=== PATIENT | female | born 1965 | race Caucasian/White ===

== ENCOUNTER 2018-02-03 13:46 | Emergency (ER) | payer MEDICAID ==
[~2018-02-03] VITALS: Ht 157.5 cm; Wt 144.8 kg
[~2018-02-03 13:46] MED LIST: ASPIR 8181 M1 PO; BENTYL 20 MG TA20 M1 PO; CLEOCIN HCL150 MG PO; DOXYCYCLINE 10100 M1 PO; DOXYCYCLINE 10100 MG PO; HYDROCODON-ACE1 EAC5 PO; HYDROCODON-ACE1 EAC7; HYDROCODON-ACE1 EAC7 PO; HYDROCODONE-AP1 EAC6 PO; HYDROCODONE-APA1 TA1 PO; HYSINGLA ER40 MG PO; INDAPAMIDE2.5 MG PO; IRON325; LEVOTHYROXIN0.025 MG PO; LISINOPRIL2.5 MG PO; LOMOTIL TABLET1 EACH PO; LORTAB 7.5/5001 TA1 PO; NOHOMEMEDICATIONS; NORCO 10-325 T1 EACH PO; NORCO 5-325 TA1 EAC1 PO; NORCO 5-325 TA1 EACH PO; OXYCONTIN; OXYCONTIN PO; PARAFON FORTE500 M2 PO; PERCOCET 5-3251 EACH PO; PHENERGAN 25 MG25 M1 PO; RANITIDINE 150150 M1 PO; RANITIDINE HCL300 M1 PO; TRAMADOL 50 MG50 MG PO; TRIPLE ANTIBIOT30 G2 TP; TYLENOL325 MG PO; ULTRAM 50MG TAB50 MG PO; ULTRAM50 MG PO; VICODIN 5-5001 EACH PO; VITAMIN D1000 UNI1 PO; ZANTAC 150MG T150 M1; ZOFRAN ODT4 MG PO; [UNRECOGNIZED DRUG - OTHER]
[2018-02-03] MEDS ORDERED: SYNTHROID50 MCG PO (14:03)
[2018-02-03] MEDS ORDERED: INDAPAMIDE2.5 MG PO (14:03)
[2018-02-03 14:49] LABS: INFLUENZA A ANTIGEN None Detected (None Detect)
[2018-02-03] MEDS ORDERED: BENTYL 20 MG TA20 M1 PO (15:19)
[2018-02-03] MEDS ORDERED: PHENERGAN 25 MG25 M1 PO (15:19)
[2018-02-03 15:35] VITALS: BP 163/74
== END 2018-02-03 15:35 | disposition home or self-care (01) ==
LOC: M.ERS 13:46
PROVIDERS: Nurse Practitioner Family
DX: J11.1 Influenza due to unidentified influenza virus with other respiratory manifestations (principal); M19.90 Unspecified osteoarthritis, unspecified site; K21.9 Gastro-esophageal reflux disease without esophagitis; E03.9 Hypothyroidism, unspecified; M79.7 Fibromyalgia; G43.909 Migraine, unspecified, not intractable, without status migrainosus; G89.29 Other chronic pain

== ENCOUNTER 2018-03-29 18:07 | Emergency (ER) | payer MEDICAID ==
[~2018-03-29] VITALS: Ht 157.5 cm; Wt 142.9 kg
[~2018-03-29 18:07] MED LIST changes: +SYNTHROID50 MCG PO
[2018-03-29] MEDS ORDERED: LOPRESSOR25 PO (18:34)
[2018-03-29] MEDS ORDERED: TRAMADOL 50 MG50 MG PO (18:35)
[2018-03-29] MEDS ORDERED: HYDROCODONE-AP1 EAC6 PO (18:40)
[2018-03-29 19:48] LABS: CALCIUM 8.8 mg/dL (8.5-10.1); CREATININE 0.6 mg/dL (0.6-1.3); POTASSIUM 4.4 mmol/L (3.5-5.1)
[2018-03-29 19:51] VITALS: BP 209/93
[2018-03-29 19:52] LABS: ALBUMIN 3.6 g/dL (3.4-5.0); TOTAL BILIRUBIN 0.2 mg/dL (<0.1-1.0); TOTAL PROTEIN 7.2 g/dL (6.4-8.2)
--- NOTE | 2018-03-30 10:05 | EKG ---
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 : 1965 Requested By: Lisa Orellana Order Number: [id number] MD: Bradley Duran Measurements Intervals [place] Rate: 69 P: 50 AR: 133 QRS: 6 QRSD: 102 T: 55 QT: 411 QTc: 441 Interpretive Statements Sinus rhythm Probable left atrial enlargement Minimal ST depression, lateral leads Compared to ECG 10/22/2010 10:04:40 no change Electronically Signed On 03-30-2018 10:05:09 CDT by Bradley Duran [email or web address] <ELECTRONICALLY SIGNED> By: Bradley Duran MD, [facility] 03/30/18 1005 183 32 Bradley Duran MD, [facility] /EPI
== END 2018-03-29 19:53 | disposition home or self-care (01) ==
LOC: M.ERS 18:07
PROVIDERS: Nurse Practitioner Family
DX: T44.7X1A Poisoning by beta-adrenoreceptor antagonists, accidental (unintentional), initial encounter (principal); G89.29 Other chronic pain; M54.9 Dorsalgia, unspecified; M25.559 Pain in unspecified hip; M19.90 Unspecified osteoarthritis, unspecified site; M79.7 Fibromyalgia; G43.909 Migraine, unspecified, not intractable, without status migrainosus; K21.9 Gastro-esophageal reflux disease without esophagitis; E03.9 Hypothyroidism, unspecified; R53.82 Chronic fatigue, unspecified; Z88.5 Allergy status to narcotic agent; Z88.0 Allergy status to penicillin; Z88.1 Allergy status to other antibiotic agents; Z88.4 Allergy status to anesthetic agent; Z88.2 Allergy status to sulfonamides; Z88.8 Allergy status to other drugs, medicaments and biological substances; Z77.22 Contact with and (suspected) exposure to environmental tobacco smoke (acute) (chronic); Y92.89 Other specified places as the place of occurrence of the external cause

== ENCOUNTER 2018-12-03 05:46 | Emergency (ER) | payer MEDICAID ==
[~2018-12-03] VITALS: Ht 157.5 cm; Wt 142.9 kg
[~2018-12-03 05:46] MED LIST changes: +LOPRESSOR25 PO
[2018-12-03 05:52] VITALS: BP 198/87
[2018-12-03] MEDS ORDERED: TRAMADOL 50 MG50 MG PO ×2 (05:58→06:05)
[2018-12-03] MEDS ORDERED: HYDROCODONE-AP1 EAC6 PO (05:58)
== END 2018-12-03 06:17 | disposition home or self-care (01) ==
LOC: M.ERS 05:46
DX: M25.561 Pain in right knee (principal); G89.29 Other chronic pain; M54.9 Dorsalgia, unspecified; M25.559 Pain in unspecified hip; M19.90 Unspecified osteoarthritis, unspecified site; M79.7 Fibromyalgia; G43.909 Migraine, unspecified, not intractable, without status migrainosus; K21.9 Gastro-esophageal reflux disease without esophagitis; E03.9 Hypothyroidism, unspecified; Z77.22 Contact with and (suspected) exposure to environmental tobacco smoke (acute) (chronic); Z88.4 Allergy status to anesthetic agent; Z88.5 Allergy status to narcotic agent; Z88.0 Allergy status to penicillin; Z88.8 Allergy status to other drugs, medicaments and biological substances; Z88.2 Allergy status to sulfonamides

== ENCOUNTER 2019-02-10 21:37 | Emergency (ER) | payer MEDICAID ==
[~2019-02-10] VITALS: Ht 157.5 cm; Wt 140.6 kg
[2019-02-10] MEDS ORDERED: INDAPAMIDE2.5 MG PO (21:51)
[2019-02-10] MEDS ORDERED: ULTRAM 50MG TAB50 MG PO (22:02)
[2019-02-10] MEDS ORDERED: FLEXERIL PO (22:02)
[2019-02-10 22:18] VITALS: BP 197/99
== END 2019-02-10 22:18 | disposition home or self-care (01) ==
LOC: M.ERS 21:37
DX: G89.29 Other chronic pain (principal); M54.5 Low back pain; M19.90 Unspecified osteoarthritis, unspecified site; M79.7 Fibromyalgia; K21.9 Gastro-esophageal reflux disease without esophagitis; E03.9 Hypothyroidism, unspecified; Z77.22 Contact with and (suspected) exposure to environmental tobacco smoke (acute) (chronic); Z88.0 Allergy status to penicillin; Z88.2 Allergy status to sulfonamides; Z88.6 Allergy status to analgesic agent; Z88.8 Allergy status to other drugs, medicaments and biological substances

== ENCOUNTER 2020-05-28 20:44 | Emergency (ER) | payer MEDICAID ==
[~2020-05-28] VITALS: Ht 157.5 cm; Wt 137.9 kg
[~2020-05-28 20:44] MED LIST changes: +FLEXERIL PO
[2020-05-28 21:11] LABS: URINE BILIRUBIN NEGATIVE (Negative); URINE BLOOD NEGATIVE (Negative); URINE CLARITY CLEAR; URINE COLOR YELLOW; URINE GLUCOSE-RANDOM NEGATIVE (Negative); URINE KETONES NEGATIVE (Negative); URINE LEUKOCYTES-REFLEX NEGATIVE (Negative); URINE NITRITE-REFLEX NEGATIVE (Negative); URINE PROTEIN NEGATIVE (Negative); URINE UROBILINOGEN 0.2 E.U./dl (0.2-1.0)
[2020-05-28 21:44] LABS: ABSOLUTE BASOPHILS 0.1 thou/uL (0.0-0.2); ABSOLUTE EOSINOPHILS 0.3 thou/uL (0.0-0.7); ABSOLUTE LYMPHOCYTES 2.3 thou/uL (0.8-5.3); ABSOLUTE MONOCYTES 0.6 thou/uL (0.0-1.2); ABSOLUTE NEUTROPHILS 5.3 thou/uL (1.6-8.1); BASOPHILS 0.9 %; EOSINOPHILS 3.5 %; HEMATOCRIT 41.8 % (37.0-47.0); HEMOGLOBIN 14.1 gm/dL (12.0-15.0); LYMPHOCYTES 27.1 %; MCH 29.1 pg (26.0-34.0); MCHC 33.6 g/dL (28.0-37.0); MCV 86.7 fL (80.0-100.0); MONOCYTES 6.9 %; MPV 8.9 fl. (7.2-11.1); NUCLEATED RBCS 0 /100WBC; PLATELET COUNT* 249 thou/uL (150-400); POLYS 61.6 %; RBC 4.82 mil/uL (4.20-5.00); RDW-CV 14.2 % (10.5-14.5); WBC 8.6 thou/uL (4.0-11.0)
[2020-05-28 21:53] LABS: CALCIUM 8.3 mg/dL (8.5-10.1); CREATININE 1.1 mg/dL (0.6-1.3); POTASSIUM 3.6 mmol/L (3.5-5.1)
[2020-05-28 21:56] LABS: INR 0.9; PROTIME 9.8 Seconds (9.20-11.50)
[2020-05-28 22:03] LABS: ALBUMIN 3.6 g/dL (3.4-5.0); MAGNESIUM 2.3 mg/dL (1.8-2.4); TOTAL BILIRUBIN 0.4 mg/dL (<0.1-1.0)
[2020-05-28] MEDS ORDERED: PRILOSEC OTC20 MG PO (23:30)
[2020-05-28] MEDS ORDERED: ZOFRAN ODT4 MG PO (23:30)
[2020-05-28] MEDS ORDERED: CARAFATE 1 GM TA1 GM PO (23:30)
[2020-05-28 23:47] VITALS: BP 150/96
--- NOTE | 2020-05-29 09:42 | EKG ---
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1965 Requested By: Sujey Choudhury Order Number: [id number] MD: Alex Moreau Measurements Intervals [place] Rate: 105 P: 48 NE: 160 QRS: 0 QRSD: 92 T: 48 QT: 346 QTc: 458 Interpretive Statements Sinus tachycardia Left atrial enlargement Compared to ECG 03/29/2018 18:33:53 Sinus rhythm no longer present ST (T wave) deviation no longer present Electronically Signed On 05-29-2020 9:42:20 CDT by Alex Moreau [email or web address] <ELECTRONICALLY SIGNED> By: Alex Moreau MD, FACC 05/29/20 0942 47 47 Alex Moreau MD, [facility] /EPI
== END 2020-05-28 23:50 | disposition home or self-care (01) ==
LOC: M.ERS 20:44
PROVIDERS: Emergency Medicine
DX: R07.89 Other chest pain (principal); R11.2 Nausea with vomiting, unspecified; R19.7 Diarrhea, unspecified; E03.9 Hypothyroidism, unspecified; K21.9 Gastro-esophageal reflux disease without esophagitis; M19.90 Unspecified osteoarthritis, unspecified site; M79.7 Fibromyalgia; G43.909 Migraine, unspecified, not intractable, without status migrainosus; G89.29 Other chronic pain; Z77.22 Contact with and (suspected) exposure to environmental tobacco smoke (acute) (chronic); Z88.0 Allergy status to penicillin; Z88.2 Allergy status to sulfonamides; Z88.6 Allergy status to analgesic agent; Z88.8 Allergy status to other drugs, medicaments and biological substances

== ENCOUNTER 2020-08-25 05:13 | Emergency (ER) | payer MEDICAID ==
[~2020-08-25] VITALS: Ht 157.5 cm; Wt 136.1 kg
[~2020-08-25 05:13] MED LIST changes: +CARAFATE 1 GM TA1 GM PO; +PRILOSEC OTC20 MG PO
[2020-08-25] MEDS ORDERED: HYDROCODON-ACE1 EAC7 PO (05:35)
[2020-08-25] MEDS ORDERED: ZPAK PO (05:35)
[2020-08-25] MEDS ORDERED: IBUPROFEN 800800 M1 PO (05:36)
[2020-08-25 06:03] VITALS: BP 177/102
== END 2020-08-25 06:04 | disposition home or self-care (01) ==
LOC: M.ERS 05:13
DX: S02.5XXA Fracture of tooth (traumatic), initial encounter for closed fracture (principal); K02.9 Dental caries, unspecified; M19.90 Unspecified osteoarthritis, unspecified site; M79.7 Fibromyalgia; K21.9 Gastro-esophageal reflux disease without esophagitis; G43.909 Migraine, unspecified, not intractable, without status migrainosus; E03.9 Hypothyroidism, unspecified; Z88.1 Allergy status to other antibiotic agents; Z88.0 Allergy status to penicillin; Z88.5 Allergy status to narcotic agent; Z88.2 Allergy status to sulfonamides; Z88.8 Allergy status to other drugs, medicaments and biological substances; Z77.22 Contact with and (suspected) exposure to environmental tobacco smoke (acute) (chronic); X58.XXXA Exposure to other specified factors, initial encounter; Y93.9 Activity, unspecified; Y92.89 Other specified places as the place of occurrence of the external cause; Y99.8 Other external cause status

== ENCOUNTER 2021-04-19 07:32 | Inpatient (IN) | payer MEDICAID ==
[~2021-04-19] VITALS: Ht 157.5 cm; Wt 138.3 kg
[~2021-04-19 07:32] MED LIST changes: +IBUPROFEN 800800 M1 PO; +ZPAK PO
[2021-04-19 07:34] VITALS: BP 151/98
[2021-04-19] MEDS ORDERED: TUMS200 MG PO (07:38)
[2021-04-19 07:50] LABS: ABSOLUTE BASOPHILS 0.1 thou/uL (0.0-0.2); ABSOLUTE EOSINOPHILS 0.3 thou/uL (0.0-0.7); ABSOLUTE MONOCYTES 0.6 thou/uL (0.0-1.2); ABSOLUTE NEUTROPHILS 3.9 thou/uL (1.6-8.1); BASOPHILS 1.3 %; EOSINOPHILS 4.5 %; HEMOGLOBIN 15.1 gm/dL (12.0-15.0); LYMPHOCYTES 28.7 %; MCH 28.4 pg (26.0-34.0); MCHC 33.6 g/dL (28.0-37.0); MCV 84.6 fL (80.0-100.0); MONOCYTES 8.2 %; MPV 8.2 fl. (7.2-11.1); NUCLEATED RBCS 0 /100WBC; PLATELET COUNT* 296 thou/uL (150-400); POLYS 57.3 %; RBC 5.32 mil/uL (4.20-5.00); RDW-CV 14.9 % (10.5-14.5); WBC 6.8 thou/uL (4.0-11.0)
[2021-04-19 08:04] LABS: CREATININE 0.9 mg/dL (0.6-1.3); POTASSIUM 3.6 mmol/L (3.5-5.1)
[2021-04-19 08:29] LABS: ALBUMIN 3.6 g/dL (3.4-5.0); CK-MB MASS 1.8 ng/mL (<0.5-3.6); MAGNESIUM 2.2 mg/dL (1.8-2.4); TOTAL BILIRUBIN 0.3 mg/dL (<0.1-1.0); TOTAL PROTEIN 8.2 g/dL (6.4-8.2)
[2021-04-19 09:36] LABS: SQUAMOUS 0-3 Few /LPF (0-3); URINE BILIRUBIN NEGATIVE (Negative); URINE BLOOD 2+ (Negative); URINE CLARITY CLEAR; URINE COLOR YELLOW; URINE GLUCOSE-RANDOM NEGATIVE (Negative); URINE KETONES NEGATIVE (Negative); URINE LEUKOCYTES-REFLEX NEGATIVE (Negative); URINE NITRITE-REFLEX NEGATIVE (Negative); URINE PROTEIN NEGATIVE (Negative); URINE SPECIFIC GRAVITY <= 1.005 (1.005-1.030); URINE UROBILINOGEN 0.2 E.U./dl (0.2-1.0)
[2021-04-19 09:37] LABS: BACTERIA-REFLEX 1-9 Few /HPF (None Seen); CASTS None Seen /LPF (None Seen); CRYSTALS None Seen /LPF (None Seen); URINE RBC 0-2 Rare /HPF (0-2); URINE WBC-REFLEX 0-5 Rare /HPF (0-5)
[2021-04-19 13:00] VITALS: BP 165/94
[2021-04-19 15:05] VITALS: BP 156/83
--- NOTE | 2021-04-19 15:05 | NUR ---
ASMIT FROM ER TO FLOOR VIA BED TELEPHONE REPORT GIVEN PRIOR TO ARRIVAL PATIENT ORIENTED TO ROOM AND CALL LIGHT PATIENT DENIES PAIN AT THIS TIME
[2021-04-19 15:16] VITALS: BP 167/88
[2021-04-19 16:00] VITALS: BP 148/72
--- NOTE | 2021-04-19 16:04 | 2DMMODE ---
[place] [address] 2 D/M-MODE ECHOCARDIOGRAM Name: VICKI FITZGERALD Room: [address] IN .[place].#: [id number] Admission: 04/19/21 Attend Phys: Aly Goldsmith, Discharge: Date of : 61 Date of Service: 04/19/21 1603 Report #: [id number] THIS REPORT FOR: cc: Kermit aCstelan MD, Richard K. MD Holkins,Zain Meza MD [facility] ~ APPROVED REPORT Study performed: 04/19/2021 15:21:06 EXAM: Comprehensive 2D, Doppler, and color-flow Echocardiogram Patient Location: In-Patient Room #: [facility]. Status: routine BSA: 2.29 HR: 71 bpm BP: 167/88 mmHg Rhythm: NSR Other Information Study Quality: Good Indications Atrial Fibrillation 2D Dimensions LVOT Diam: 18.40 (18-24mm) Aortic Root: 30.33 mm Volumes Left Atrial Volume (Systole) LA ESV Index: 24.40 mL/m2 Aortic Valve AoV Peak Wolf.: 1.38 m/s AO Peak Gr.: 7.58 mmHg LVOT Max P.58 mmHg AO Mean Gr.: 4.43 mmHg LVOT Mean P.99 mmHg LVOT Max V: 1.18 m/s AO V2 VTI: 31.16 cm LVOT Mean V: 0.80 m/s RICARDO (VTI): 2.24 cm2 LVOT V1 VTI: 26.28 cm Mitral Valve E/A Ratio: 1.03 MV Decel. Time: 213.41 [place] [address] 2 D/M-MODE ECHOCARDIOGRAM Name: VICKI FITZGERALD Room: [address] IN [facility]#: [id number] Admission: 04/19/21 Attend Phys: Aly Goldsmith, Discharge: Date of : 61 Date of Service: 04/19/21 1603 Report #: [id number] MV E Max Wolf.: 0.82 m/s MV PHT: 61.89 ms MVA (PHT): 3.55 cm2 TDI E/Lateral E': 7.45 E/Medial E': 8.20 Medial E' Wolf.: 0.10 m/s Lateral E' Wolf.: 0.11 m/s Pulmonary Valve PV Peak Wolf.: 0.82 m/s PV Peak Gr.: 2.68 mmHg Left Ventricle The left ventricle is normal size. There is normal LV segmental wall motion. There is normal left ventricular wall thickness. Left ventricular systolic function is normal. The left ventricular ejection fraction is within the normal range. LVEF is 60%. The left ventricular diastolic function is normal. Right Ventricle The right ventricle is normal size. The right ventricular systolic function is normal. Atria The left atrium size is normal. The right atrium size is normal. Aortic Valve The aortic valve is normal in structure. No aortic regurgitation is present. There is no aortic valvular stenosis. Mitral Valve Mild mitral annular calcification. Trace mitral regurgitation. No evidence of mitral valve stenosis. Tricuspid Valve The tricuspid valve is normal in structure. Unable to assess PA pressure. Trace tricuspid regurgitation. Pulmonic Valve The pulmonary valve is normal in structure. Trace pulmonic regurgitation. Great Vessels The aortic root is normal in size. IVC is normal in size and collapses >50% [place] [address] 2 D/M-MODE ECHOCARDIOGRAM Name: VICKI FITZGERALD Arthur Room: [address] [place] .R.#: [id number] Admission: 04/19/21 Attend Phys: Aly Goldsmith, Discharge: Date of : 61 Date of Service: 04/19/21 1603 Report #: [id number] Pericardium There is no pericardial effusion. <Conclusion> The left ventricle is normal size. There is normal left ventricular wall thickness. Left ventricular systolic function is normal. The left ventricular ejection fraction is within the normal range. LVEF is 60%. The right ventricle is normal size. The left atrium size is normal. The aortic valve is normal in structure. Mild mitral annular calcification. Trace mitral regurgitation. The tricuspid valve is normal in structure. IVC is normal in size and collapses >50% with inspiration. There is no pericardial effusion. There is normal LV segmental wall motion. <ELECTRONICALLY SIGNED> By: Zain Treadwell MD, [facility] 04/19/21 1603 1603 1603 Zain Treadwell MD, FACC /INF
--- NOTE | 2021-04-19 16:44 | EKG ---
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 : 1965 Requested By: Luis Antonio Avila Order Number: [id number] MD: Zain Treadwell Measurements Intervals [place] Rate: 157 P: WI: QRS: 4 QRSD: 89 T: 88 QT: 283 QTc: 458 Interpretive Statements Atrial fibrillation with occasional aberrant conduction Probable LVH with secondary repol abnrm ST depression, probably rate related Baseline wander in lead(s) III,aVF,V6 Compared to ECG 05/28/2020 20:48:[address]-T changes have occurred Sinus tachycardia is no longer noted Atrial fibrillation with a rapid response is noted Electronically Signed On 04-19-2021 16:43:57 CDT by Zain Treadwell [email or web address] <ELECTRONICALLY SIGNED> By: Zain Treadwell MD, [facility] 04/19/21 1643 0736 Zain Treadwell MD, [facility] /EPI
[2021-04-19 20:05] VITALS: BP 141/72
[2021-04-20 00:03] VITALS: BP 151/72
[2021-04-20 03:45] VITALS: BP 148/66
[2021-04-20 04:27] LABS: ABSOLUTE BASOPHILS 0.1 thou/uL (0.0-0.2); ABSOLUTE EOSINOPHILS 0.2 thou/uL (0.0-0.7); ABSOLUTE MONOCYTES 0.6 thou/uL (0.0-1.2); ABSOLUTE NEUTROPHILS 4.2 thou/uL (1.6-8.1); BASOPHILS 0.9 %; HEMATOCRIT 38.9 % (37.0-47.0); HEMOGLOBIN 13.2 gm/dL (12.0-15.0); LYMPHOCYTES 36.9 %; MCH 28.9 pg (26.0-34.0); MCHC 33.8 g/dL (28.0-37.0); MCV 85.5 fL (80.0-100.0); MONOCYTES 7.8 %; MPV 8.6 fl. (7.2-11.1); NUCLEATED RBCS 0 /100WBC; PLATELET COUNT* 269 thou/uL (150-400); POLYS 51.4 %; RBC 4.56 mil/uL (4.20-5.00); RDW-CV 14.9 % (10.5-14.5); WBC 8.2 thou/uL (4.0-11.0)
--- NOTE | 2021-04-20 04:37 | NUR ---
ASSUMED CARE AT 1905H, ON RA AND TOLERATED. PT REFUSED TO TAKE HER NIGHT PILLS. SHE'S ANXIOUS THAT IT WILL HAVE A BAD REACTION TO HER BODY. MEDICATION EDUCATION DONE BUT STILL DOESN'T NOT WANT TO TAKE HER PILL. COMPLAINED OF PAIN, PRN MED GIVEN. CONTINUE MONITORING AND TOWARDS GOALS.
--- NOTE | 2021-04-20 04:42 | NUR ---
PT HAVING HER MENSTRUAL PERIOD STARTED THIS MORNING. HAVING ABDOMINAL CRAMPS, WAITING FOR THE HEATING PAD.
[2021-04-20 05:04] LABS: CALCIUM 8.2 mg/dL (8.5-10.1); POTASSIUM 3.5 mmol/L (3.5-5.1)
[2021-04-20 08:17] VITALS: BP 155/63
[2021-04-20] MEDS ORDERED: FLECAINIDE ACET50 M1 PO (10:29)
[2021-04-20] MEDS ORDERED: METOPROLOL TART25 MG PO (10:29)
[2021-04-20] MEDS ORDERED: XARELTO20 MG PO (10:29)
[2021-04-20 11:56] VITALS: BP 155/63
--- NOTE | 2021-04-20 12:45 | NUR ---
Reviewed discharge teaching with patient with patient's sister present. Verbalized understanding. Pt states she will not take Xarelto or flecainide, but will take the metoprolol. She elected not to take the morning dose of metoprolol this morning, but states she will take it later today after she picks it up from the pharmacy. Pt instructed that the metoprolol is not an "as needed" type of medication. Pt also states she will take 2 baby aspirin rather than the Xarelto. Pt finishing her lunch, and will then be discharged per WC.
== END 2021-04-20 13:10 | disposition home or self-care (01) | DRG 309 ==
LOC: M.ERS 07:32 → M.TBA-ER 08:34 → M.2W 15:14
PROVIDERS: Family Medicine; ADMIT Internal Medicine; ATTEND Internal Medicine
DX: I48.20 Chronic atrial fibrillation, unspecified (principal); E66.2 Morbid (severe) obesity with alveolar hypoventilation; Z68.43 Body mass index [BMI] 50.0-59.9, adult; G89.29 Other chronic pain; M54.9 Dorsalgia, unspecified; M19.90 Unspecified osteoarthritis, unspecified site; K21.9 Gastro-esophageal reflux disease without esophagitis; E03.9 Hypothyroidism, unspecified; G43.909 Migraine, unspecified, not intractable, without status migrainosus; M79.7 Fibromyalgia; I10 Essential (primary) hypertension; Z20.822 Contact with and (suspected) exposure to COVID-19; Z79.899 Other long term (current) drug therapy; Z88.1 Allergy status to other antibiotic agents; Z88.5 Allergy status to narcotic agent; Z88.0 Allergy status to penicillin; Z88.2 Allergy status to sulfonamides; Z88.8 Allergy status to other drugs, medicaments and biological substances

== ENCOUNTER 2021-06-16 21:48 | Emergency (ER) | payer MEDICAID ==
[~2021-06-16] VITALS: Ht 157.5 cm; Wt 138.3 kg
[~2021-06-16 21:48] MED LIST changes: +FLECAINIDE ACET50 M1 PO; +METOPROLOL TART25 MG PO; +TUMS200 MG PO; +XARELTO20 MG PO
[2021-06-16] MEDS ORDERED: ASA81BEC PO (22:05)
[2021-06-17 00:07] LABS: URINE BILIRUBIN NEGATIVE (Negative); URINE BLOOD 2+ (Negative); URINE CLARITY CLEAR; URINE COLOR YELLOW; URINE GLUCOSE-RANDOM NEGATIVE (Negative); URINE KETONES NEGATIVE (Negative); URINE LEUKOCYTES-REFLEX 1+ (Negative); URINE NITRITE-REFLEX NEGATIVE (Negative); URINE PROTEIN NEGATIVE (Negative); URINE SPECIFIC GRAVITY <= 1.005 (1.005-1.030); URINE UROBILINOGEN 0.2 E.U./dl (0.2-1.0)
[2021-06-17 00:12] LABS: HEMATOCRIT 46.9 % (37.0-47.0); HEMOGLOBIN 15.1 gm/dL (12.0-15.0); MCH 27.9 pg (26.0-34.0); MCHC 32.2 g/dL (28.0-37.0); MCV 86.9 fL (80.0-100.0); MPV 8.6 fl. (7.2-11.1); RBC 5.4 mil/uL (4.20-5.00); RDW-CV 14.8 % (10.5-14.5); WBC 7.4 thou/uL (4.0-11.0)
[2021-06-17 00:26] LABS: CALCIUM 10.3 mg/dL (8.5-10.1); POTASSIUM 3.9 mmol/L (3.5-5.1)
[2021-06-17 00:30] LABS: ALBUMIN 4.2 g/dL (3.4-5.0); TOTAL BILIRUBIN 0.4 mg/dL (<0.1-1.0); TOTAL PROTEIN 8.8 g/dL (6.4-8.2)
[2021-06-17] MEDS ORDERED: MACROBID 100 M100 M1 PO (00:43)
[2021-06-17 00:54] VITALS: BP 162/79
[2021-06-17 02:05] LABS: CASTS None Seen /LPF (None Seen); SQUAMOUS 4-10 Moderate /LPF (0-3)
[2021-06-17 02:06] LABS: URINE RBC 3-10 Few /HPF (0-2); URINE WBC-REFLEX 6-15 Few /HPF (0-5)
[2021-06-17 02:07] LABS: BACTERIA-REFLEX 1-9 Few /HPF (None Seen); CRYSTALS None Seen /LPF (None Seen)
--- NOTE | 2021-06-17 10:08 | EKG ---
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1965 Requested By: Mile Obregon Order Number: [id number] MD: Bradley Duran Measurements Intervals [place] Rate: 85 P: 47 CA: 140 QRS: 1 QRSD: 98 T: 41 QT: 375 QTc: 446 Interpretive Statements Sinus rhythm Probable left atrial enlargement Minimal ST depression, lateral leads Baseline wander in lead(s) II,III,aVR,aVL,aVF Compared to ECG 04/19/2021 07:36:11 Atrial fibrillation no longer present ST (T wave) deviation still present Electronically Signed On 06-17-2021 10:08:16 CDT by Bradley Duran [email or web address] <ELECTRONICALLY SIGNED> By: Bradley Duran MD, [facility] 06/17/21 1008 99 99 Bradley Duran MD, [facility] /EPI
== END 2021-06-17 00:54 | disposition home or self-care (01) ==
LOC: M.ERS 21:48
PROVIDERS: Personal Emergency Response Attendant
DX: N39.0 Urinary tract infection, site not specified (principal); Z20.822 Contact with and (suspected) exposure to COVID-19; R42 Dizziness and giddiness; R31.9 Hematuria, unspecified; M19.90 Unspecified osteoarthritis, unspecified site; M79.7 Fibromyalgia; G43.909 Migraine, unspecified, not intractable, without status migrainosus; K21.9 Gastro-esophageal reflux disease without esophagitis; E03.9 Hypothyroidism, unspecified; G62.9 Polyneuropathy, unspecified; Z79.891 Long term (current) use of opiate analgesic; Z79.82 Long term (current) use of aspirin; Z79.899 Other long term (current) drug therapy; Z88.6 Allergy status to analgesic agent; Z88.4 Allergy status to anesthetic agent; Z88.5 Allergy status to narcotic agent; Z88.0 Allergy status to penicillin; Z88.2 Allergy status to sulfonamides; Z88.7 Allergy status to serum and vaccine; Z88.8 Allergy status to other drugs, medicaments and biological substances; Z77.22 Contact with and (suspected) exposure to environmental tobacco smoke (acute) (chronic)